=== PATIENT | female | born 1980 | race Caucasian/White ===

== ENCOUNTER 2019-01-30 05:46 | Emergency (ER) | payer OTHER ==
[2019-01-30 06:33] VITALS: PULSE 87; TEMP 98.5; BMI 35.2
--- NOTE | 2019-01-30 07:25 | PDOC ---
History of Present Illness - General Chief Complaint: Shortness of Breath Stated Complaint: S.O.B. Time Seen by Provider: 01/30/19 07:22 - History of Present Illness Initial Comments: 01/30/19 07:25 38yo F hx HTN (on amlodipine 1x/day) and headaches (frequent, unknown frequency ) presents from home c/o elevated BP 193/133, burning chest pain x 2 days, and 1 week of palpitations, intermittent SOB, and fatigue. Endorses chronic intermittent headaches, LLE numbness/tingling, and back pain, all unchanged. Denies fever, chills, vertigo, dizziness, new numbness/tingling, weakness, vision changes, cough, leg swelling, abdominal pain, blood in stool, diarrhea, constipation, nausea, vomiting, dysuria, hematuria, confusion. Past History - Past Medical History Allergies/Adverse Reactions: Allergies Allergy/AdvReac Type Severity Reaction Status Date / Time No Known Allergies Allergy Verified 01/30/19 06:33 Home Medications: Ambulatory Orders Methocarbamol [Robaxin -] 1,000 mg PO BID #14 tablet 11/13/15 Naproxen [Naprosyn -] 500 mg PO BID #14 tablet 11/13/15 Olmesartan/Amlodipin/Hcthiazid [Tribenzor 20-5-12.5 mg Tablet] 1 each PO DAILY # 15 tablet 11/13/15 HTN: Yes (CHRONIC HIGH WHILE ON MEDS. STATES HER MD HAS NO EXPLANATION FOR THIS) - Suicide/Smoking/Psychosocial Hx Smoking Status: No Smoking History: Never smoked Have you smoked in the past 12 months: No Number of Cigarettes Smoked Daily: 0 Hx Alcohol Use: No Drug/Substance Use Hx: No Review of Systems - Review of Systems Comments:: 01/30/19 10:06 Constitutional: Negative for chills, fever, fatigue. HENT: Negative for sore throat, rhinorrhea, congestion. Eyes: Negative for visual disturbance. Respiratory: Positive for shortness of breath. Negative for cough, and wheezing. Cardiovascular: Positive for chest pain, palpitations. Negative for leg swelling. Gastrointestinal: Negative for abdominal pain, blood in stool, constipation, diarrhea, nausea, and vomiting. Genitourinary: Negative for dysuria, flank pain, and hematuria. Musculoskeletal: Positive for back pain (chronic). Negative for myalgias and neck pain. Skin: Negative for rash. Neurological: Positive for headache and tingling LLE (chronic). Negative for light-headedness, dizziness, syncope, weakness. Psychiatric/Behavioral: Negative for behavioral problems and confusion. *Physical Exam - Vital Signs Last Vital Signs Temp Pulse Resp BP Pulse Ox 98.5 F 87 19 190/75 H 98 01/30/19 05:46 01/30/19 05:46 01/30/19 05:46 01/30/19 05:46 01/30/19 05:46 - Physical Exam Comments: 01/30/19 09:46 Gen: Alert, NAD, comfortable-appearing. HEENT: PERRL, EOMI, MMM, NCAT. No conjunctival pallor. Sclera are non-icteric. Oropharynx is clear. CV: No TTP of chest. Regular rate and rhythm. No murmurs, rubs, or gallops. PULM: No resp distress. CTAB, no wheezes, rales, or rhonchi. ABD: soft, NT/ND, no rebound tenderness or guarding, no CVA tenderness. BACK: No TTP of c/t/l-spine. No step-offs or deformities. MSK: No bony deformities. 2+ pulses in all extremities. NEURO: AAOx3. PERRL. No gross CN deficits. Strength and sensation grossly intact throughout. EXTREMITIES: No cyanosis. No clubbing. No edema. No calf tenderness. PSYCH: Normal mood and thought pattern. SKIN: Warm and dry. Normal capillary refill. No rashes. No jaundice. Heart Score/ECG Review - ECG Impressions Comment:: 01/30/19 09:46 NSR, 79bpm, QTc 473ms, normal axis, no TWIs, no ST elevations or depressions ED Treatment Course - LABORATORY CBC & Chemistry Diagram: 01/30/19 08:28 01/30/19 08:28 Medical Decision Making - Medical Decision Making 01/30/19 07:25 38yo F hx HTN (on amlodipine 1x/day) and headaches (frequent, unknown frequency ) presents from home c/o elevated BP 193/133, burning chest pain x 2 days, and 1 week of palpitations, intermittent SOB, and fatigue. Endorses chronic intermittent headaches, LLE numbness/tingling, and back pain, all unchanged. BP here 190/75, repeat 160/106. Other vital signs WNL, afebrile. Normal cardiac, pulmonary, and neurologic physical exam. HTN most likely chronic as pt states it is normally 160s/110s when she takes it approximately 1x/week. Pt states she is compliant with her amlodipine for 8 years. Per chart review, pt c/o chronic high BP despite medication use at last visit in 2016 as well. 2016 visit note also mentions noncompliance with medications, which could be contributing factor. Nonpositional, no recent URI concerning for pericarditis. -EKG -CBC, CMP, Cardiac profile, BNP, Mg, Phos, TSH -CXR -Dispo: pending w/u 01/30/19 09:18 EKG reviewed. No concerning findings. BP R arm 165/114. 01/30/19 09:42 Labs reviewed. No concerning findings. Pending TSH - called lab and said they would do it now. CXR reviewed - no acute pathology. Pt reassessed. Pt states medication slightly improved headache and chest pain and palpitations but symptoms are all still present. Pt offered additional pain medications multiple times and pt denies. Exam still normal. Informed pt of test results and answered all questions. BP R arm 160/106. 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 Pt states Dr Arceo on vacation. 01/30/19 10:02 BP L arm 160/106. 01/30/19 10:15 Discussed with attending - decided to give one of home dose 5mg amlodipine to see if helps with BP and sx. 01/30/19 10:21 TSH 5.85. Added on T3/T4 and called lab. Discussed result with pt. 01/30/19 10:[address] Davies's discussion with pt, pt was prescribed diuretic and ran out of medication 1 month ago, which is most likely a contributing factor to high BP. 01/30/19 11:15 Will dc home with PCP f/u. Return precautions given. Pt understands all dc instructions and all questions were answered. 01/30/19 11:22 *DC/Admit/Observation/Transfer Diagnosis at time of Disposition: Hypertension, High thyroid stimulating hormone (TSH) level, Chest pain, Palpitations - Discharge Dispostion Disposition: HOME Condition at time of disposition: Improved Decision to Admit order: No - Referrals Referrals: Carlos Arceo [Primary Care Provider] - - Patient Instructions Printed Discharge Instructions: DI for Hyperthyroidism, DI for High Blood Pressure, DI for Palpitations Additional Instructions: You have been seen in the Emergency Department for chest pain, heart racing, and high blood pressure. Your EKG, chest X-ray, and labs, including Troponin (a heart enzyme), show no signs concerning for an emergent condition such as a heart attack or pneumonia. Your TSH (a thyroid hormone) is elevated (5.85) which could indicate that you have a thyroid abnormality such as hyperthyroidism , which could be contributing to your symptoms. Make sure to give your primary care doctor this result so he can do further evaluation and management. You have not been taking your prescribed blood pressure medication consistently which is most likely contributing to your high blood pressure. You need to make sure you always take your medications as prescribed. Follow-up with your primary care doctor within 1 week. Return to the ED immediately if you experience chest pain, difficulty breathing , dizziness, fainting, or any other new or worsening symptom. - Post Discharge Activity
[2019-01-30] MEDS ORDERED: ACETAMINOPHEN 500 MG TABLET (FP) PO ONE (07:45)
[2019-01-30] MEDS ORDERED: FAMOTIDINE 20 MG/50 ML IVPB 20 MG/50 ML MG IVPB ONE ×2 (07:46→08:31)
[2019-01-30] MEDS ORDERED: MAG HYDROX/AL HYDROX/SIMETH 30 ML UNIT-DOSE CUP PO ONE (07:46)
[2019-01-30] MEDS ORDERED: SODIUM CHLORIDE 0.9% 500 ML INFUS.BAG IV ONE (07:47)
[2019-01-30] MEDS ORDERED: MAG HYDROX/AL HYDROX/SIMETH 30 ML UNIT-DOSE CUP ONE (08:31)
[2019-01-30] MEDS ORDERED: ACETAMINOPHEN 325 MG TABLET (FP) ONE (08:31)
[2019-01-30 08:38] LABS: BASO % 0.7 % (0-2.0); EOS % 1.5 % (0-4.5); HEMATOCRIT 43.3 % (32.4-45.2); HEMOGLOBIN 14.7 GM/dL (10.7-15.3); MCH 30.9 pg (25.7-33.7); MCHC 34.1 g/dl (32.0-36.0); MEAN CELL VOLUME 90.6 fl (80-96); MEAN PLT VOLUME 8.4 fl (7.5-11.1); NEUT % 53.8 % (42.8-82.8); PLATELET COUNT 284 K/MM3 (134-434); RBC 4.77 M/mm3 (3.60-5.2); RDW 13.6 % (11.6-15.6); WHITE BLOOD COUNT 9.6 K/mm3 (4.0-10.0)
[2019-01-30 09:13] LABS: N-TERMINAL BNP 41.6 pg/ml (5-125); PHOSPHOROUS 3.1 mg/dL (2.5-4.9)
[2019-01-30 09:14] LABS: ALBUMIN 4.1 g/dl (3.4-5.0); ALK PHOS 72 U/L (45-117); ANION GAP 7 MMOL/L (8-16); BILIRUBIN,TOTAL 0.4 mg/dL (0.2-1); BLOOD UREA NITROGEN 6.4 mg/dL (7-18); CALCIUM 9.2 mg/dL (8.5-10.1); CHLORIDE 105 mmol/L (98-107); CO2 28 mmol/L (21-32); CREATININE 0.6 mg/dL (0.55-1.3); GLUCOSE,RANDOM 100 mg/dL (74-106); POTASSIUM 3.6 mmol/L (3.5-5.1); SGOT/AST 16 U/L (15-37); SGPT/ALT 21 U/L (13-61); SODIUM 140 mmol/L (136-145); TOT PROT 8.1 g/dl (6.4-8.2)
[2019-01-30] MEDS ORDERED: amLODIPine BESYLATE 5 MG TABLET (FP) PO ONE (10:14)
[2019-01-30] MEDS ORDERED: amLODIPine BESYLATE 5 MG TABLET (FP) ONE ×2 (10:20→10:23)
--- NOTE | 2019-01-30 10:48 | PDOC ---
Attending Attestation - Resident Resident Name: Keisha Duran - ED Attending Attestation I have performed the following: I have examined & evaluated the patient, The case was reviewed & discussed with the resident, I agree w/resident's findings & plan - HPI HPI: 01/30/19 10:40 38y/o F HTN on meds (amlodipine and a diuretec but noncompliant with diuretic since running out of rx 1 month ago) now with chest discomfort and intermittent palpitations for several days. no exertional sxs, no infectious complaints. no dvt/pe risk factors. - Physicial Exam PE: 01/30/19 10:43 vs as noted, elevated BP at triage but HR normal despite active sxs of palpitations perrl, eomi thyroid without palpable nodule s1s1 rrr, no murmur ctab abd benign no edema/calf ttp neuro nl - Medical Decision Making 01/30/19 10:48 38y/o F with known HTN and noncompliance with meds p/w elevated BP and sxs of atypical cp/palpitations. no other red flags on history/PE. labs, ekg, cxr wnl -- tsh slightly elevated, T3/T4 sent for pcp f/u give additional dose of amlodipine does not recall diuretic name/dose, will call PCP for refill, has f/u appt with them next week pt understands return criteria, agrees with dc plan and pcp f/u Heart Score/ECG Review #1 ECG reviewed & interpreted by me at: 06:15 General ECG Interpretation: Sinus Rhythm, Normal Rate (79), Normal Intervals ( qtc 463), No acute ischemic changes
[2019-01-30 10:53] VITALS: BP 158/109
--- NOTE | 2019-01-30 10:57 | EKG ---
Test Reason : Blood Pressure : / mmHG Vent. Rate : 079 BPM Atrial Rate : 079 BPM P-R Int : 136 ms QRS Dur : 082 ms QT Int : 404 ms P-R-T Axes : 020 000 000 degrees QTc Int : 463 ms NORMAL SINUS RHYTHM NORMAL ECG WHEN COMPARED WITH ECG OF 12-NOV-2015 23:46, NO SIGNIFICANT CHANGE WAS FOUND Confirmed by Nestor Mathews ([id number]) on 01/30/2019 10:56:45 AM Referred By: Confirmed By:Nestor Mathews
== END 2019-01-30 11:24 | disposition home or self-care (01) ==
LOC: JER 05:46
PROC: 3E033GC Introduction of Other Therapeutic Substance into Peripheral Vein, Percutaneous Approach (ICD-10-PCS; principal; 2019-01-30)
DX: R07.9 Chest pain, unspecified (principal); R94.6 Abnormal results of thyroid function studies; I10 Essential (primary) hypertension; R00.2 Palpitations; R51 Headache
CPT/HCPCS: 36415; 71046-TC-FY; 80053; 82550; 83690; 83735; 83880; 84100; 84436; 84439; 84443; 84479; 84481; 84484; 84703; 85025; 93005; 93010; 99284-25

== ENCOUNTER 2020-10-29 17:41 | Observation (INO) | payer OTHER ==
[2020-10-29 17:58] VITALS: TEMP 98.1; BMI 27.3
[2020-10-29] MEDS ORDERED: ACETAMINOPHEN 1000 MG/100 ML VIAL (NON FORMULARY) IVPB ONE (19:27)
[2020-10-29] MEDS ORDERED: ACETAMINOPHEN INJECTION 100 ML IVPB ONE (19:39)
[2020-10-29 20:09] LABS: BASO % 0.5 % (0-2.0); EOS % 0.5 % (0-4.5); HEMATOCRIT 43.3 % (32.4-45.2); HEMOGLOBIN 14.9 GM/dL (10.7-15.3); LYMPH % 18.6 % (8-40); MCH 30.8 pg (25.7-33.7); MCHC 34.4 g/dl (32.0-36.0); MEAN CELL VOLUME 89.6 fl (80-96); MEAN PLT VOLUME 7.7 fl (7.5-11.1); MONO % 6.8 % (3.8-10.2); NEUT % 73.6 % (42.8-82.8); PLATELET COUNT 311 10^3/uL (134-434); RBC 4.84 M/mm3 (3.60-5.2); RDW 13.8 % (11.6-15.6)
[2020-10-29 20:11] LABS: PH,URINE 6.5 (5.0-8.0); URINE APPEARANCE CLEAR; URINE BILIRUBIN NEGATIVE (NEGATIVE); URINE COLOR YELLOW; URINE GLUCOSE (UA) NEGATIVE (NEGATIVE); URINE KETONE NEGATIVE (NEGATIVE); URINE LEUK ESTERASE NEGATIVE (NEGATIVE); URINE NITRITE NEGATIVE (NEGATIVE); URINE PROTEIN TRACE (NEGATIVE); URINE UROBILINOGEN 0.2 mg/dL (0.2-1.0)
[2020-10-29 20:29] LABS: CHLORIDE 102 mmol/L (98-107); SODIUM 138 mmol/L (136-145)
[2020-10-29 20:31] LABS: CALCIUM 9.3 mg/dL (8.5-10.1)
[2020-10-29 20:32] LABS: ALBUMIN 4.1 g/dl (3.4-5.0); ANION GAP 10 MMOL/L (8-16); BLOOD UREA NITROGEN 10.1 mg/dL (7-18); CO2 27 mmol/L (21-32)
[2020-10-29 20:33] LABS: GLUCOSE,RANDOM 85 mg/dL (74-106)
[2020-10-29 20:35] LABS: CREATININE 0.7 mg/dL (0.55-1.3); SGOT/AST 17 U/L (15-37); SGPT/ALT 18 U/L (13-61)
[2020-10-29 20:37] LABS: ALK PHOS 63 U/L (45-117); BILIRUBIN,TOTAL 0.6 mg/dL (0.2-1); TOT PROT 8.1 g/dl (6.4-8.2)
[2020-10-29] MEDS ORDERED: POTASSIUM CHLORIDE TABS 20 MEQ TABLET.ER (FP) PO ONE ×2 (22:15→22:20)
[2020-10-29] MEDS ORDERED: amLODIPine BESYLATE 5 MG TABLET (FP) PO ONE (22:16)
[2020-10-29] MEDS ORDERED: amLODIPine BESYLATE 5 MG TABLET (FP) ONE (22:21)
[2020-10-29 22:54] LABS: MAGNESIUM 2.2 mg/dL (1.8-2.4)
[2020-10-30] MEDS ORDERED: KCL 10 MEQ IVPB 10 MEQ/100 ML INFUS.BAG IVPB SCH (02:00)
[2020-10-30] MEDS ORDERED: amLODIPine BESYLATE 5 MG TABLET (FP) PO SCH ×2 (02:05→10:00)
[2020-10-30] MEDS ORDERED: amLODIPine BESYLATE 5 MG TABLET (FP) PO ONE (03:41)
[2020-10-30] MEDS ORDERED: amLODIPine BESYLATE 5 MG TABLET (FP) ONE (04:06)
[2020-10-30] MEDS ORDERED: KCL 10 MEQ IVPB 10 MEQ/100 ML INFUS.BAG IVPB ONE (04:06)
[2020-10-30 08:45] LABS: HEMATOCRIT 41.9 % (32.4-45.2); HEMOGLOBIN 14.1 GM/dL (10.7-15.3); MCH 30.3 pg (25.7-33.7); MCHC 33.7 g/dl (32.0-36.0); MEAN PLT VOLUME 7.9 fl (7.5-11.1); PLATELET COUNT 297 10^3/uL (134-434); RBC 4.65 M/mm3 (3.60-5.2); RDW 13.8 % (11.6-15.6); WHITE BLOOD COUNT 8.3 K/mm3 (4.0-10.0)
[2020-10-30 09:05] LABS: CALCIUM 8.5 mg/dL (8.5-10.1)
[2020-10-30 09:06] LABS: ALBUMIN 3.4 g/dl (3.4-5.0); BLOOD UREA NITROGEN 10.4 mg/dL (7-18); MAGNESIUM 2.3 mg/dL (1.8-2.4)
[2020-10-30 09:10] LABS: BILIRUBIN,TOTAL 0.5 mg/dL (0.2-1); CREATININE 0.6 mg/dL (0.55-1.3); PHOSPHOROUS 3.7 mg/dL (2.5-4.9); TOT PROT 6.9 g/dl (6.4-8.2)
[2020-10-30] MEDS ORDERED: ENOXAPARIN NA (PORCINE) 40 MG/0.4 ML DISP.SYRIN SQ SCH (10:00)
[2020-10-30] MEDS ORDERED: HYDROCHLOROTHIAZIDE 12.5 MG CAPSULE (FP) PO SCH (10:00)
[2020-10-30] MEDS ORDERED: LOSARTAN 50MG/HCTZ 12.5MG 1 TAB PO SCH (10:00)
[2020-10-30 16:26] VITALS: BP 130/84; PULSE 88
[2020-10-30] MEDS ORDERED: amLODIPine BESYLATE 10 MG TABLET (FP) PO SCH (22:00)
== END 2020-10-30 16:30 | disposition home or self-care (01) ==
LOC: JER 17:41 → JERBED 23:28 → UNDOADMOB 23:28 → INTOOBSV 10-30 01:57 → OBSVTOIN 10-30 01:57 → JERBED 10-30 11:22
PROVIDERS: ADMIT Internal Medicine; ATTEND Internal Medicine
PROC: 3E033NZ Introduction of Analgesics, Hypnotics, Sedatives into Peripheral Vein, Percutaneous Approach (ICD-10-PCS; principal; 2020-10-30)
PROC: 3E013GC Introduction of Other Therapeutic Substance into Subcutaneous Tissue, Percutaneous Approach (ICD-10-PCS; 2020-10-30)
DX: I16.0 Hypertensive urgency (principal); R07.89 Other chest pain; I10 Essential (primary) hypertension; Z86.16 Personal history of COVID-19; D72.829 Elevated white blood cell count, unspecified; E87.6 Hypokalemia
CPT/HCPCS: 36415; 70450-TC; 71045-TC-FY; 76775-TC; 80053; 80061; 81003; 83036; 83721; 83735; 84100; 84443; 84484; 85025; 85027; 93005; 93010; 96372; 96374; 99285-25; C9803; G0378; J0131; U0003; U0005